=== PATIENT | male | born 1985 | race African-American/Black ===

== ENCOUNTER 2023-06-27 19:04 | Observation (INO) ==
--- NOTE | 2023-06-27 19:21 | Emergency Department Note ---
ED Provider Note History of Present Illness Chief Complaint: Abdominal Pain Stated Complaint: ABDOMINAL PAIN Time Seen by Provider: 06/27/23 19:09 Source: patient Mode of arrival: EMS Limitations: no limitations This patient is a 37-year-old male who presents to the emergency department via EMS from the correctional facility for evaluation of abdominal pain and guarding. Patient reports that his pain started when he woke up about 3 days ago. It has gradually worsened throughout the week and he went to medical today. They examined him and sent him to the ER. He states pain is primarily on the left side of the abdomen but does radiate throughout. He denies any fevers, vomiting or changes in bowel movements. He does report that he had diverticulitis in 2021 and this feels similar. He is not currently taking any medication for the abdominal pain. Home Medications Medication Instructions Recorded Confirmed Type celecoxib 200 mg capsule (Celebrex) 200 mg PO BID 06/27/23 06/27/23 History losartan 100 mg tablet 100 mg PO DAILY 06/27/23 06/27/23 History Allergies Allergy/AdvReac Type Severity Reaction Status Date / Time lactose AdvReac intolerance Verified 06/27/23 22:51 Past Med/Surg History Medical History No pertinent past medical history No pertinent family history Surgical History No pertinent past surgical history Social History Smoking Status: Never smoker Feels Safe at Home: Yes Physical Exam Vital Signs Vital Signs - 24 hr 06/27/23 18:53 06/27/23 19:06 06/27/23 19:10 Temperature 37.0 C Temperature Source Oral Pulse Rate 77 Pulse Rate from SpO2 Sensor Respiratory Rate 20 Respiratory Effort / Characteristics Non-Labored Spontaneous Respiratory Depth Normal Blood Pressure Blood Pressure [Right Arm] 130/92 Blood Pressure Mean Blood Pressure Mean [Right Arm] 104 Pulse Oximetry 95 98 Oxygen Delivery Method Room Air Room Air Sepsis Recent Fever Within 48 Hours No Sepsis New/Unexplained Change in Mental Status No Sepsis Action Taken by Nursing No Action Required 06/27/23 19:13 06/27/23 19:15 06/27/23 19:30 Temperature Temperature Source Pulse Rate 84 77 72 Pulse Rate from SpO2 Sensor Respiratory Rate 17 18 Respiratory Effort / Characteristics Respiratory Depth Blood Pressure Blood Pressure [Right Arm] Blood Pressure Mean Blood Pressure Mean [Right Arm] Pulse Oximetry Oxygen Delivery Method Sepsis Recent Fever Within 48 Hours Sepsis New/Unexplained Change in Mental Status Sepsis Action Taken by Nursing 06/27/23 19:49 06/27/23 20:00 06/27/23 20:30 Temperature Temperature Source Pulse Rate 77 80 Pulse Rate from SpO2 Sensor 78 Respiratory Rate 21 24 Respiratory Effort / Characteristics Respiratory Depth Blood Pressure Blood Pressure [Right Arm] Blood Pressure Mean Blood Pressure Mean [Right Arm] Pulse Oximetry 98 97 Oxygen Delivery Method Room Air Sepsis Recent Fever Within 48 Hours Sepsis New/Unexplained Change in Mental Status Sepsis Action Taken by Nursing 06/27/23 20:45 06/27/23 21:00 06/27/23 21:02 Temperature Temperature Source Pulse Rate 91 H 71 73 Pulse Rate from SpO2 Sensor 85 69 72 Respiratory Rate 20 17 19 Respiratory Effort / Characteristics Respiratory Depth Blood Pressure 145/119 H 159/107 H Blood Pressure [Right Arm] Blood Pressure Mean 127 124 Blood Pressure Mean [Right Arm] Pulse Oximetry 95 94 95 Oxygen Delivery Method Sepsis Recent Fever Within 48 Hours Sepsis New/Unexplained Change in Mental Status Sepsis Action Taken by Nursing 06/27/23 21:11 Temperature Temperature Source Pulse Rate Pulse Rate from SpO2 Sensor Respiratory Rate Respiratory Effort / Characteristics Non-Labored Spontaneous Respiratory Depth Normal Blood Pressure Blood Pressure [Right Arm] Blood Pressure Mean Blood Pressure Mean [Right Arm] Pulse Oximetry Oxygen Delivery Method Sepsis Recent Fever Within 48 Hours Sepsis New/Unexplained Change in Mental Status Sepsis Action Taken by Nursing VITALS: Vitals are noted on the nurse's note and reviewed by myself. GENERAL: This is a 37-year-old male, in no acute distress, well-developed well- nourished. MOUTH: Mucous membranes moist. NECK: Supple without nuchal rigidity. HEART: Regular rate and rhythm without murmurs gallops or rubs. LUNGS: Clear to auscultation bilaterally without wheezes, rales or rhonchi. ABDOMEN: Abdomen mildly distended. Tenderness throughout the abdomen, most pronounced in the left lower quadrant. Positive guarding. NEURO: Patient was alert and oriented. Course Administered Medications Sodium Chloride (Nss) 1,000 mls @ 999 mls/hr IV .Q1H1M ONE Stop: 06/27/23 23:17 Last Admin: 06/27/23 22:28 Dose: 999 mls/hr Documented By: CELESTE Discontinued Medications Hydromorphone HCl (Hydromorphone Inj 0.5 Mg/0.5 Ml Syr) 0.5 mg IV NOW STA Stop: 06/27/23 22:18 Last Admin: 06/27/23 22:28 Dose: 0.5 mg Documented By: CELESTE Piperacillin Sod/Tazobactam Sod (Zosyn) 4.5 gm in 100 mls @ 200 mls/hr IV NOW STA; Protocol Stop: 06/27/23 22:37 Last Infusion: 06/27/23 22:53 Dose: Infused Documented By: Admin: 06/27/23 22:11 Dose: 200 mls/hr Documented By: CELESTE Ioversol (Optiray 320 500ml) 88 ml IV ONCE ONE Stop: 06/27/23 20:32 Last Admin: 06/27/23 20:31 Dose: 88 ml Documented By: SHRUTI Ketorolac Tromethamine (Ketorolac Tromethamine 15 Mg/Ml Vial) 15 mg IV NOW STA Stop: 06/27/23 22:44 Last Admin: 06/27/23 23:00 Dose: 15 mg Documented By: CELESTE Morphine Sulfate (Morphine Sulfate 10 Mg/Ml Carp/Vial) 6 mg IV NOW STA Stop: 06/27/23 20:33 Last Admin: 06/27/23 20:38 Dose: 6 mg Documented By: CELESTE Ondansetron HCl (Ondansetron Inj 2 Mg/Ml 2 Ml Vial) 4 mg IV NOW STA Stop: 06/27/23 20:33 Last Admin: 06/27/23 20:39 Dose: 4 mg Documented By: CELESTE Ondansetron HCl (Ondansetron Inj 2 Mg/Ml 2 Ml Vial) 4 mg IV NOW STA Stop: 06/27/23 22:27 Last Admin: 06/27/23 22:28 Dose: 4 mg Documented By: CELESTE Medical Decision Making Differential Diagnosis Appendicitis, testicular torsion, infections, diverticulitis, UTI, obstruction, mesenteric ischemia, aortic pathology, inflammatory bowel disease, renal colic, PUD, pancreatitis, biliary pathology, hernia, volvulus, constipation, as well as other pathologies. Home Medications was personally reviewed by me Laboratory Data Attestation: I reviewed the patient's lab results. 06/27/23 19:18 06/27/23 19:18 Lab Results 06/27/23 Range/Units 19:18 WBC 8.31 (4.8-10.8) K/ul RBC 6.10 (4.70-6.10) M/uL Hgb 17.7 (14.0-18.0) g/dl Hct 52.4 H (42.0-52.0) % MCV 85.9 (80.0-100.0) fL MCH 29.0 (25.0-34.0) pg MCHC 33.8 (32.0-36.0) g/dL RDW Std Deviation 42.4 (36.4-46.3) fL RDW Coeff of Marcella 13.6 (11.5-14.5) % Plt Count 281 (130-400) K/uL MPV 9.5 (9.4-12.4) fL Immature Gran % (Auto) 0.4 % Neut % (Auto) 58.1 % Lymph % (Auto) 29.6 % [place] % (Auto) 11.1 % Eos % (Auto) 0.6 % Baso % (Auto) 0.2 % Neut # (Auto) 4.83 (1.40-6.50) K/uL Lymph # (Auto) 2.46 (1.20-3.40) K/uL [place] # (Auto) 0.92 H (0.11-0.59) K/uL Eos # (Auto) 0.05 (0.00-0.50) K/uL Baso # (Auto) 0.02 (0.00-0.20) K/uL Immature Gran # (Auto) 0.03 (0.01-0.20) K/uL Sodium 139 (136-145) mmol/L Potassium 3.5 (3.5-5.1) mmol/L Chloride 104 (98-107) mmol/L Carbon Dioxide 27 (21-32) mmol/L Anion Gap 8 (3-11) BUN 9 (6-23) mg/dl Creatinine 1.12 (0.6-1.4) mg/dl Est Cr Clr Drug Dosing 112.0 ml/min Est GFR ( Amer) 96.7 ml/min Est GFR (Non-Af Amer) 83.5 ml/min BUN/Creatinine Ratio 8.0 L (10-20) Glucose 103 H (70-99(Fasting)) mg/dl Lactate 0.8 (0.4-2.0) mmol/L Calcium 8.8 (8.6-10.3) mg/dl Total Bilirubin 0.6 (0.2-1.0) mg/dl AST 17 (13-39) U/L ALT 26 (7-52) U/L Alkaline Phosphatase 103 (34-104) U/L Total Protein 8.0 (6.0-8.3) gm/dl Albumin 4.5 (3.4-5.0) gm/dl Globulin 3.5 (2.5-4.0) gm/dl Albumin/Globulin Ratio 1.3 (0.9-2) Lipase 9 L (11-82) U/L Imaging Data Attestation: I personally reviewed and interpreted this imaging study as follows: Radiologist's Impression: Abdomen/Pelvis CT 06/27/23 19:16 CR Exam(s): CT ABDOMEN + PELVIS With Contrast IV Amt: 88 ml opti 320 EXAM: CT Abdomen and Pelvis With Intravenous Contrast CLINICAL HISTORY: Reason for exam: llq pain, guarding, hx diverticulitis. TECHNIQUE: Axial computed tomography images of the abdomen and pelvis with intravenous contrast. CTDI is 27.92 mGy and DLP is 1459.91 mGy-cm. Automated exposure control was utilized for the study. A dose lowering technique was utilized adhering to the principles of ALARA. CONTRAST: Patient received 88 ml opti 320 of IV contrast COMPARISON: CT abdomen pelvis 07/11/2021. FINDINGS: Lung bases: Unremarkable. No mass. No consolidation. ABDOMEN: Liver: Unremarkable. No mass. Gallbladder and bile ducts: Unremarkable. No calcified stones. No ductal dilation. Pancreas: Unremarkable. No mass. No ductal dilation. Spleen: Unremarkable. No splenomegaly. Adrenals: Unremarkable. No mass. Kidneys and ureters: Subcentimeter hypodensities in the kidneys are too small to characterize. No hydronephrosis. Stomach and bowel: There appears to be pneumatosis coli in the cecum and ascending colon. Fluid-filled small bowel and proximal colon. PELVIS: Appendix: No findings to suggest acute appendicitis. Bladder: Unremarkable. No mass. Reproductive: Unremarkable as visualized. ABDOMEN and PELVIS: Intraperitoneal space: No free air. No significant fluid collection. Bones/joints: Degenerative change in the sacroiliac joints, right greater than left. No acute fracture. No dislocation. Soft tissues: Unremarkable. Vasculature: Unremarkable. No abdominal aortic aneurysm. Lymph nodes: Unremarkable. No enlarged lymph nodes. IMPRESSION: There appears to be pneumatosis coli in the cecum and ascending colon. No definite etiology is identified on this examination. However, infection/inflammation may be a potential source of given fluid throughout the small bowel and proximal colon. No definite mesenteric artery or vein occlusion is seen. Clinical correlation is recommended. Communications: Call Doctor Tiff 06/27/23 21:10 Call Doctor Regarding Above results, called JONNIE Velasco on 06/27 21:10 (-05:00) Electronically signed by: Dangelo Novoa MD 06/27/23 21:10 PM MDM Narrative Continuous telemetry monitor: Order was placed for continuous telemetry monitor. Patient was placed on the telemetry monitor. Patient was noted to be in normal sinus rhythm at an initial rate of 70 bpm. The patient is a 37-year-old male with past medical history of hypertension, diverticulitis who presents today complaining of abdominal pain. Labs revealed no leukocytosis, anemia or concerning electrolyte abnormalities. Lactate was not elevated. CT scan performed and reviewed by stat read. I did discuss with the statrad radiologist, Dr. Novoa. CT showed pneumatosis coli with no definite etiology. Discussed with general surgery, Dr. Silva who recommended treating for presumed diverticulitis. Patient given a dose of Zosyn. Discussed with the [facility] hospitalist, Dr. Mo who will admit the patient for further care. Discharge Plan Visit Data Chief Complaint: Abdominal Pain Stated Complaint: ABDOMINAL PAIN ED Provider: Maci Kendall ED Midlevel Provider: Sondra Montenegro Forms Stand Alone Forms: My [facility] [id number] Prescriptions Prescriptions: No Action celecoxib [Celebrex] 200 mg Capsule 200 mg PO BID losartan 100 mg Tablet 100 mg PO DAILY Referrals Referrals: Savannah LUDWIG [Primary Care Provider] -
[2023-06-27 19:39] LABS: Basophils # (auto) 0.02 K/uL (0.00-0.20); Basophils % (auto) 0.2 %; Eosinophils # (auto) 0.05 K/uL (0.00-0.50); Eosinophils % (auto) 0.6 %; Hematocrit (blood only) 52.4 % (42.0-52.0); Hemoglobin 17.7 g/dl (14.0-18.0); Immature Granulocytes # (auto) 0.03 K/uL (0.01-0.20); Immature Granulocytes % (auto) 0.4 %; Lymphocytes # (auto) 2.46 K/uL (1.20-3.40); Lymphocytes % (auto) 29.6 %; Mean Corpuscular Hgb Conc 33.8 g/dL (32.0-36.0); Mean Corpuscular Volume 85.9 fL (80.0-100.0); Mean Platelet Volume 9.5 fL (9.4-12.4); Monocytes # (auto) 0.92 K/uL (0.11-0.59); Monocytes % (auto) 11.1 %; Neutrophils # (auto) 4.83 K/uL (1.40-6.50); Neutrophils % (auto) 58.1 %; Platelet Count 281 K/uL (130-400); RDW Coefficient of Variation 13.6 % (11.5-14.5); RDW Standard Deviation 42.4 fL (36.4-46.3); White Blood Count 8.31 K/ul (4.8-10.8)
[2023-06-27 19:55] LABS: Albumin Globulin Ratio 1.3 (0.9-2); Albumin Level 4.5 gm/dl (3.4-5.0); Bilirubin,Total 0.6 mg/dl (0.2-1.0); Calcium 8.8 mg/dl (8.6-10.3); Est GFR (African American) 96.7 ml/min; Est GFR (Non-African American) 83.5 ml/min; Globulin 3.5 gm/dl (2.5-4.0); Potassium 3.5 mmol/L (3.5-5.1)
[2023-06-27] MEDS: OPTIRAY 320 500ml IV ONE (20:31)
[2023-06-27] MEDS: MoRPHine SULFATE 10 MG/ML CARP/VIAL IV STA (20:38)
[2023-06-27] MEDS: ONDANSETRON INJ 2 MG/ML 2 ML VIAL IV STA ×2 (20:39→22:28)
--- NOTE | 2023-06-27 21:11 | CT Scan Report ---
Exam(s): CT ABDOMEN + PELVIS With Contrast IV Amt: 88 ml opti 320 EXAM: CT Abdomen and Pelvis With Intravenous Contrast CLINICAL HISTORY: Reason for exam: llq pain, guarding, hx diverticulitis. TECHNIQUE: Axial computed tomography images of the abdomen and pelvis with intravenous contrast. CTDI is 27.92 mGy and DLP is 1459.91 mGy-cm. Automated exposure control was utilized for the study. A dose lowering technique was utilized adhering to the principles of ALARA. CONTRAST: Patient received 88 ml opti 320 of IV contrast COMPARISON: CT abdomen pelvis 07/11/2021. FINDINGS: Lung bases: Unremarkable. No mass. No consolidation. ABDOMEN: Liver: Unremarkable. No mass. Gallbladder and bile ducts: Unremarkable. No calcified stones. No ductal dilation. Pancreas: Unremarkable. No mass. No ductal dilation. Spleen: Unremarkable. No splenomegaly. Adrenals: Unremarkable. No mass. Kidneys and ureters: Subcentimeter hypodensities in the kidneys are too small to characterize. No hydronephrosis. Stomach and bowel: There appears to be pneumatosis coli in the cecum and ascending colon. Fluid-filled small bowel and proximal colon. PELVIS: Appendix: No findings to suggest acute appendicitis. Bladder: Unremarkable. No mass. Reproductive: Unremarkable as visualized. ABDOMEN and PELVIS: Intraperitoneal space: No free air. No significant fluid collection. Bones/joints: Degenerative change in the sacroiliac joints, right greater than left. No acute fracture. No dislocation. Soft tissues: Unremarkable. Vasculature: Unremarkable. No abdominal aortic aneurysm. Lymph nodes: Unremarkable. No enlarged lymph nodes. IMPRESSION: There appears to be pneumatosis coli in the cecum and ascending colon. No definite etiology is identified on this examination. However, infection/inflammation may be a potential source of given fluid throughout the small bowel and proximal colon. No definite mesenteric artery or vein occlusion is seen. Clinical correlation is recommended. Communications: Call Doctor Tiff 06/27/23 21:10 Call Doctor Regarding Above results, called JONNIE Velasco on 06/27 21:10 (-05:00) Electronically signed by: Dangelo Novoa MD 06/27/23 21:10 PM
[2023-06-27] MEDS ORDERED: PIPERACILLIN/TAZOBACTAM 4.5 GM in DEXTROSE 5% MINI-B 100 ML IV ONE (21:45)
[2023-06-27] MEDS: PIPERACILLIN/TAZOBACTAM 4.5 GM/100 ML BAG IV STA (22:11)
[2023-06-27] MEDS: SODIUM CHLORIDE 0.9% 1,000 ML IV ONE (22:28)
[2023-06-27] MEDS: HYDROmorphone INJ 0.5 MG/0.5 ML SYR IV STA (22:28)
[2023-06-27] MEDS: KETOROLAC TROMETHAMINE 15 MG/ML VIAL IV STA (23:00)
--- NOTE | 2023-06-27 23:48 | History & Physical Report ---
Date of Service June 27, 2023 Assessment & Plan (1) Abdominal pain: Plan: Pneumatosis coli on imaging Past history diverticulitis Presenting as LGIB Patient currently hemodynamically stable. hypertension, slightly elevated secondary discomfort F General surgery consult Re: Abnormal CT/pneumatosis coli on imaging ER provider already in touch with Dr. Silva who recommends antibiotic Rx with Zosyn and treating patient similar to diverticulitis management. GI consult re: LGIB, past history diverticulitis DVT prophylaxis. SCDs RE LGIB Full code Text document was generated using OLSET voice recognition software. It may contain grammatical or spelling errors. Kindly contact undersigned for clarification of any documentation item in question. History of Present Illness Chief Complaint: Abdominal pain Primary Care Provider: OZIEL Nuñez History obtained from patient and records. Medical history significant for hypertension, migraine, past episodes of diverticulitis, osteoarthritis. Last [facility] ER visit June 2021 for mild diverticulitis. Patient symptoms improved with home Rx of Augmentin at facility. Few days ago, patient noted achy lower abdominal pain reminiscent of diverticulitis pain from 2 years ago. Worsening pain noted today much worse than 2 years ago. Some nausea, no emesis. Constipated. No unusual weight loss. No fever, no chills, no chest pain, no SOB. Transient achy headache symptoms associated with seeing bright spots. Bloody diarrhea noted at the ER. Medical History as above Surgical History : None Family History : Heart disease, DM, stroke Personal/Social history : Non-smoker, no EtOH intake, [facility] inmate Allergies Allergy/AdvReac Type Severity Reaction Status Date / Time lactose AdvReac intolerance Verified 06/27/23 22:51 Home Medications Medication Instructions Recorded Confirmed Type celecoxib 200 mg capsule (Celebrex) 200 mg PO BID 06/27/23 06/27/23 History losartan 100 mg tablet 100 mg PO DAILY 06/27/23 06/27/23 History Past Med/Surg History Medical History No pertinent past medical history No pertinent family history Surgical History No pertinent past surgical history Social History Smoking Status: Never smoker Second Hand Exposure: No; Do You Dip or Chew Tobacco: No; Tobacco Cessation Education Requested by Patient: No Hx Alcohol Use: No Hx Substance Use: No Preferred Language: Moroccan Communication Ability: Effective Hand Leather Trimmer Required: No Beliefs That Will Affect Care: Jewish Jewish Beliefs: Jew. Current Living Situation: Other Current Living Situation Comment: [facility]. Other Information That Helps Us Care for You: No Feels Safe at Home: Yes Safety Concerns: Feels Safe At This Time Assistive Devices: None Review of Systems Review of Systems: As per HPI, all other systems reviewed and negative Physical Exam Physical Exam: GENERAL: uncomfortable, obese, anxious, no respiratory distress SKIN: Normal color, warm HEENT: [place] palpebral conjunctivae, no ptosis, dry buccal mucosa NECK : Supple, no tenderness CHEST : CTA, no tenderness HEART : RRR, no obvious murmurs ABDOMEN: Abdominal distention, left-sided abdominal tenderness EXTREMITIES : No LE swelling/tenderness, no other conspicuous deformities noted NEUROLOGIC : Coherent, no facial asymmetry, no other gross focality Results & Data Results & Data Vital Signs (Past 12 Hours) Vital Signs Temp Pulse Resp BP BP Pulse Ox O2 Del Method 06/27/23 21:02 73 19 159/107 H 95 06/27/23 21:00 71 17 94 06/27/23 20:45 91 H 20 145/119 H 95 06/27/23 20:30 80 24 97 06/27/23 20:00 77 21 06/27/23 19:49 98 Room Air 06/27/23 19:30 72 18 06/27/23 19:15 77 06/27/23 19:13 84 17 06/27/23 19:10 98 Room Air 06/27/23 19:06 130/92 06/27/23 18:53 37.0 C 77 20 95 Room Air Laboratory Results Laboratory Results WBC 8.31 K/ul (4.8-10.8) 06/27/23 19:18 RBC 6.10 M/uL (4.70-6.10) 06/27/23 19:18 Hgb 17.7 g/dl (14.0-18.0) 06/27/23 19:18 Hct 52.4 % (42.0-52.0) H 06/27/23 19:18 MCV 85.9 fL (80.0-100.0) 06/27/23 19:18 MCH 29.0 pg (25.0-34.0) 06/27/23 19:18 MCHC 33.8 g/dL (32.0-36.0) 06/27/23 19:18 RDW Std Deviation 42.4 fL (36.4-46.3) 06/27/23 19:18 RDW Coeff of Marcella 13.6 % (11.5-14.5) 06/27/23 19:18 Plt Count 281 K/uL (130-400) 06/27/23 19:18 MPV 9.5 fL (9.4-12.4) 06/27/23 19:18 Immature Gran % (Auto) 0.4 % 06/27/23 19:18 Neut % (Auto) 58.1 % 06/27/23 19:18 Lymph % (Auto) 29.6 % 06/27/23 19:18 [place] % (Auto) 11.1 % 06/27/23 19:18 Eos % (Auto) 0.6 % 06/27/23 19:18 Baso % (Auto) 0.2 % 06/27/23 19:18 Neut # (Auto) 4.83 K/uL (1.40-6.50) 06/27/23 19:18 Lymph # (Auto) 2.46 K/uL (1.20-3.40) 06/27/23 19:18 [place] # (Auto) 0.92 K/uL (0.11-0.59) H 06/27/23 19:18 Eos # (Auto) 0.05 K/uL (0.00-0.50) 06/27/23 19:18 Baso # (Auto) 0.02 K/uL (0.00-0.20) 06/27/23 19:18 Immature Gran # (Auto) 0.03 K/uL (0.01-0.20) 06/27/23 19:18 Sodium 139 mmol/L (136-145) 06/27/23 19:18 Potassium 3.5 mmol/L (3.5-5.1) 06/27/23 19:18 Chloride 104 mmol/L (98-107) 06/27/23 19:18 Carbon Dioxide 27 mmol/L (21-32) 06/27/23 19:18 Anion Gap 8 (3-11) 06/27/23 19:18 BUN 9 mg/dl (6-23) 06/27/23 19:18 Creatinine 1.12 mg/dl (0.6-1.4) 06/27/23 19:18 Est Cr Clr Drug Dosing 112.0 ml/min 06/27/23 19:18 Est GFR ( Amer) 96.7 ml/min 06/27/23 19:18 Est GFR (Non-Af Amer) 83.5 ml/min 06/27/23 19:18 BUN/Creatinine Ratio 8.0 (10-20) L 06/27/23 19:18 Glucose 103 mg/dl (70-99(Fasting)) H 06/27/23 19:18 Lactate 0.8 mmol/L (0.4-2.0) 06/27/23 19:18 Calcium 8.8 mg/dl (8.6-10.3) 06/27/23 19:18 Total Bilirubin 0.6 mg/dl (0.2-1.0) 06/27/23 19:18 AST 17 U/L (13-39) 06/27/23 19:18 ALT 26 U/L (7-52) 06/27/23 19:18 Alkaline Phosphatase 103 U/L (34-104) 06/27/23 19:18 Total Protein 8.0 gm/dl (6.0-8.3) 06/27/23 19:18 Albumin 4.5 gm/dl (3.4-5.0) 06/27/23 19:18 Globulin 3.5 gm/dl (2.5-4.0) 06/27/23 19:18 Albumin/Globulin Ratio 1.3 (0.9-2) 06/27/23 19:18 Lipase 9 U/L (11-82) L 06/27/23 19:18 Impressions Abdomen/Pelvis CT 06/27/23 19:16 CR Exam(s): CT ABDOMEN + PELVIS With Contrast IV Amt: 88 ml opti 320 EXAM: CT Abdomen and Pelvis With Intravenous Contrast CLINICAL HISTORY: Reason for exam: llq pain, guarding, hx diverticulitis. TECHNIQUE: Axial computed tomography images of the abdomen and pelvis with intravenous contrast. CTDI is 27.92 mGy and DLP is 1459.91 mGy-cm. Automated exposure control was utilized for the study. A dose lowering technique was utilized adhering to the principles of ALARA. CONTRAST: Patient received 88 ml opti 320 of IV contrast COMPARISON: CT abdomen pelvis 07/11/2021. FINDINGS: Lung bases: Unremarkable. No mass. No consolidation. ABDOMEN: Liver: Unremarkable. No mass. Gallbladder and bile ducts: Unremarkable. No calcified stones. No ductal dilation. Pancreas: Unremarkable. No mass. No ductal dilation. Spleen: Unremarkable. No splenomegaly. Adrenals: Unremarkable. No mass. Kidneys and ureters: Subcentimeter hypodensities in the kidneys are too small to characterize. No hydronephrosis. Stomach and bowel: There appears to be pneumatosis coli in the cecum and ascending colon. Fluid-filled small bowel and proximal colon. PELVIS: Appendix: No findings to suggest acute appendicitis. Bladder: Unremarkable. No mass. Reproductive: Unremarkable as visualized. ABDOMEN and PELVIS: Intraperitoneal space: No free air. No significant fluid collection. Bones/joints: Degenerative change in the sacroiliac joints, right greater than left. No acute fracture. No dislocation. Soft tissues: Unremarkable. Vasculature: Unremarkable. No abdominal aortic aneurysm. Lymph nodes: Unremarkable. No enlarged lymph nodes. IMPRESSION: There appears to be pneumatosis coli in the cecum and ascending colon. No definite etiology is identified on this examination. However, infection/inflammation may be a potential source of given fluid throughout the small bowel and proximal colon. No definite mesenteric artery or vein occlusion is seen. Clinical correlation is recommended. Communications: Call Doctor Tiff 06/27/23 21:10 Call Doctor Regarding Above results, called JONNIE Velasco on 06/27 21:10 (-05:00) Electronically signed by: Dangelo Novoa MD 06/27/23 21:10 PM Diagnostic Findings EKG as per my interpretation : Rate 80, NSR, normal axis, T wave abnormalities inferior leads,
[2023-06-28] MEDS ORDERED: LORazepam 0.5 MG TAB PO PRN (01:05)
[2023-06-28] MEDS ORDERED: ACETAMINOPHEN 325 MG TAB PO PRN (01:17)
[2023-06-28 01:48] LABS: Appearance Urine Clear (Clear); Bacteria Urine Automated Negative (Negative); Bilirubin Urine Negative (Negative); Blood Urine Negative (Negative); Color Urine Yellow; Glucose Urine UA Negative (Negative); Ketones Urine Negative (Negative); Leukocyte Esterase Urine Negative (Negative); Nitrite Urine Negative (Negative); Protein Urine Trace (Negative); RBC Urine Automated 0-4 /hpf (0-4); Specific Gravity Urine > 1.045 (1.000-1.030); Urobilinogen Urine Negative (Negative); pH Urine 5.5 (4.5-7.5)
[2023-06-28 01:54] LABS: Hematocrit (blood only) 49.5 % (42.0-52.0); Hemoglobin 16.6 g/dl (14.0-18.0)
[2023-06-28] MEDS: oxyCODONE HCL IR 5 MG TAB (IMMEDIATE RELEASE) PO PRN (02:02)
[2023-06-28] MEDS: NSS + 20MEQ KCL 20 MEQ/1,000 ML BAG IV STA (02:03)
--- NOTE | 2023-06-28 03:06 | CT Scan Report ---
Exam(s): CT HEAD Without Contrast EXAM: CT Head Without Intravenous Contrast CLINICAL HISTORY: Reason for exam: transient goff, visual spots. TECHNIQUE: Axial computed tomography images of the head/brain without intravenous contrast. CTDI is 37.49 mGy and DLP is 547.75 mGy-cm. Automated exposure control was utilized for the study. A dose lowering technique was utilized adhering to the principles of ALARA. COMPARISON: No relevant prior studies available. FINDINGS: Brain: Unremarkable. No hemorrhage. No significant white matter disease. No edema. Ventricles: Unremarkable. No ventriculomegaly. Bones/joints: Unremarkable. No acute fracture. Soft tissues: Unremarkable. Sinuses: Unremarkable as visualized. No acute sinusitis. Mastoid air cells: Unremarkable as visualized. No mastoid effusion. Orbits: Prior right inferior orbital rim repair. IMPRESSION: No acute findings in the head/brain. Electronically signed by: Francisco Hurd M.D. 06/28/23 03:05 AM
[2023-06-28] MEDS: PIPERACILLIN/TAZOBACTAM 4.5 GM in DEXTROSE 5% MINI-B 100 ML IV SCH (04:00)
[2023-06-28] MEDS: PROMETHAZINE HCL 12.5 MG in SODIUM CHLORIDE 0.9% 50 ML IV PRN (04:05)
--- NOTE | 2023-06-28 07:07 | Electrocardiogram Report ---
Test Reason : Blood Pressure : / mmHG Vent. Rate : 080 BPM Atrial Rate : 080 BPM P-R Int : 178 ms QRS Dur : 086 ms QT Int : 368 ms P-R-T Axes : 034 051 018 degrees QTc Int : 424 ms Normal sinus rhythm Normal ECG No previous ECGs available Confirmed by Tony Posada ([id number]) on 06/28/2023 7:07:13 AM Referred By: REFERRED SELF Confirmed By:Oswaldo Posada
[2023-06-28] MEDS: LOSARTAN POTASSIUM 50 MG TAB PO SCH (08:23)
--- NOTE | 2023-06-28 09:40 | Gastrointestinal Consultation ---
Date of Consultation June 28, 2023 Assessment & Plan (1) Abdominal pain: He has abdominal pain and "pneumatosis coli" in right colon. Suspect he has an acute infectious enteritis. Would treat with antibiotics and observe. Do not plan testing History of Present Illness Reason for Consultation: abdominal pain Attending Physician: Brian Sepulveda MD History of Present Illness 37 year old inmate who has had abdominal pain in his left lower abdomen since Friday. He says he didn't tell anybody about it. He got worse yesterday so he came to hospital. Only had two episodes of diarrhea with it and only saw blood on the tissue on one occasion. He denies fever or chills. He says he has not had anything like this before. CT scan shows right sided pneumatosis coli with fluid in small and large bowel suggestive of infection. Allergies Allergy/AdvReac Type Severity Reaction Status Date / Time lactose AdvReac intolerance Verified 06/27/23 22:51 Home Medications Medication Instructions Recorded Confirmed Type celecoxib 200 mg capsule (Celebrex) 200 mg PO BID 06/27/23 06/27/23 History losartan 100 mg tablet 100 mg PO DAILY 06/27/23 06/27/23 History Patient History Medical History No pertinent past medical history No pertinent family history Surgical History No pertinent past surgical history Social History Smoking Status: Never smoker Second Hand Exposure: No; Do You Dip or Chew Tobacco: No; Tobacco Cessation Education Requested by Patient: No Hx Alcohol Use: No Hx Substance Use: No Preferred Language: Slovak Communication Ability: Effective Odd Ticket Clerk Required: No Beliefs That Will Affect Care: Advent Advent Beliefs: Christian. Current Living Situation: Other Current Living Situation Comment: [facility]. Other Information That Helps Us Care for You: No Feels Safe at Home: Yes Safety Concerns: Feels Safe At This Time Assistive Devices: None Review of Systems Review of Systems: All systems reviewed & are unremarkable except as noted in HPI & below Physical Exam Constitutional: WD/WN, vitals as above Neck: trachea midline, no thyromegaly Respiratory: normal respiratory effort, lungs clear to auscultation Cardiovascular: RRR, no murmur, no edema Gastrointestinal (Abdomen): Inspection/Auscultation: abdomen normal to inspection Percussion/Palpation: + abdomen tender and abdomen soft; no hepatosplenomegaly Results & Data Vital Signs (Past 12 Hours) Vital Signs Temp Pulse Pulse Resp BP BP Pulse Ox 06/28/23 08:21 62 137/78 06/28/23 07:12 36.6 C 69 16 101/62 95 06/28/23 02:35 36.7 C 62 18 141/93 H 96 06/28/23 02:30 06/28/23 02:30 06/28/23 02:30 36.7 C 62 18 141/93 H 96 06/28/23 01:57 06/28/23 01:00 66 18 06/28/23 00:30 71 21 06/28/23 00:01 61 25 H 125/91 97 06/28/23 00:00 62 21 96 06/27/23 23:31 69 14 95 06/27/23 23:30 67 22 130/66 96 06/27/23 23:17 63 06/27/23 23:03 70 24 126/80 95 06/27/23 23:00 72 16 95 06/27/23 22:30 76 26 H 95 06/27/23 22:04 74 21 94 O2 Del Method 06/28/23 08:21 06/28/23 07:12 Room Air 06/28/23 02:35 Room Air 06/28/23 02:30 Room Air 06/28/23 02:30 Room Air 06/28/23 02:30 Room Air 06/28/23 01:57 Room Air 06/28/23 01:00 06/28/23 00:30 06/28/23 00:01 06/28/23 00:00 06/27/23 23:31 06/27/23 23:30 06/27/23 23:17 06/27/23 23:03 06/27/23 23:00 06/27/23 22:30 06/27/23 22:04 Laboratory Results 06/28/23 06/28/23 06/28/23 Range/Units 03:44 01:19 01:11 WBC (4.8-10.8) K/ul RBC (4.70-6.10) M/uL Hgb 16.6 (14.0-18.0) g/dl Hct 49.5 (42.0-52.0) % MCV (80.0-100.0) fL MCH (25.0-34.0) pg MCHC (32.0-36.0) g/dL RDW Std Deviation (36.4-46.3) fL RDW Coeff of Marcella (11.5-14.5) % Plt Count (130-400) K/uL MPV (9.4-12.4) fL Immature Gran % (Auto) % Neut % (Auto) % Lymph % (Auto) % [place] % (Auto) % Eos % (Auto) % Baso % (Auto) % Neut # (Auto) (1.40-6.50) K/uL Lymph # (Auto) (1.20-3.40) K/uL [place] # (Auto) (0.11-0.59) K/uL Eos # (Auto) (0.00-0.50) K/uL Baso # (Auto) (0.00-0.20) K/uL Immature Gran # (Auto) (0.01-0.20) K/uL Sodium (136-145) mmol/L Potassium (3.5-5.1) mmol/L Chloride (98-107) mmol/L Carbon Dioxide (21-32) mmol/L Anion Gap (3-11) BUN (6-23) mg/dl Creatinine (0.6-1.4) mg/dl Est Cr Clr Drug Dosing ml/min Est GFR ( Amer) ml/min Est GFR (Non-Af Amer) ml/min BUN/Creatinine Ratio (10-20) Glucose (70-99(Fasting)) mg/dl Lactate (0.4-2.0) mmol/L Calcium (8.6-10.3) mg/dl Total Bilirubin (0.2-1.0) mg/dl AST (13-39) U/L ALT (7-52) U/L Alkaline Phosphatase (34-104) U/L Total Protein (6.0-8.3) gm/dl Albumin (3.4-5.0) gm/dl Globulin (2.5-4.0) gm/dl Albumin/Globulin Ratio (0.9-2) Lipase (11-82) U/L Urine Color Urine Appearance (Clear) Urine pH (4.5-7.5) Ur Specific [place] (1.000-1.030) Urine Protein (Negative) Urine Glucose (UA) (Negative) Urine Ketones (Negative) Urine Blood (Negative) Urine Nitrite (Negative) Urine Bilirubin (Negative) Urine Urobilinogen (Negative) Ur Leukocyte Esterase (Negative) Urine WBC (Auto) (0-5) /hpf Urine RBC (Auto) (0-4) /hpf U Hyaline Cast (Auto) (0-5) /lpf U Epithel Cells (Auto) (0-5) /lpf Urine Bacteria (Auto) (Negative) Nasal Screen MRSA (PCR) Negative (Negative) SARS-CoV-2, RNA, NAAT NEGATIVE (NEGATIVE) Blood Type O Positive Antibody Screen NEGATIVE 06/28/23 06/27/23 Range/Units 00:00 19:18 WBC 8.31 (4.8-10.8) K/ul RBC 6.10 (4.70-6.10) M/uL Hgb 17.7 (14.0-18.0) g/dl Hct 52.4 H (42.0-52.0) % MCV 85.9 (80.0-100.0) fL MCH 29.0 (25.0-34.0) pg MCHC 33.8 (32.0-36.0) g/dL RDW Std Deviation 42.4 (36.4-46.3) fL RDW Coeff of Marcella 13.6 (11.5-14.5) % Plt Count 281 (130-400) K/uL MPV 9.5 (9.4-12.4) fL Immature Gran % (Auto) 0.4 % Neut % (Auto) 58.1 % Lymph % (Auto) 29.6 % [place] % (Auto) 11.1 % Eos % (Auto) 0.6 % Baso % (Auto) 0.2 % Neut # (Auto) 4.83 (1.40-6.50) K/uL Lymph # (Auto) 2.46 (1.20-3.40) K/uL [place] # (Auto) 0.92 H (0.11-0.59) K/uL Eos # (Auto) 0.05 (0.00-0.50) K/uL Baso # (Auto) 0.02 (0.00-0.20) K/uL Immature Gran # (Auto) 0.03 (0.01-0.20) K/uL Sodium 139 (136-145) mmol/L Potassium 3.5 (3.5-5.1) mmol/L Chloride 104 (98-107) mmol/L Carbon Dioxide 27 (21-32) mmol/L Anion Gap 8 (3-11) BUN 9 (6-23) mg/dl Creatinine 1.12 (0.6-1.4) mg/dl Est Cr Clr Drug Dosing 112.0 ml/min Est GFR ( Amer) 96.7 ml/min Est GFR (Non-Af Amer) 83.5 ml/min BUN/Creatinine Ratio 8.0 L (10-20) Glucose 103 H (70-99(Fasting)) mg/dl Lactate 0.8 (0.4-2.0) mmol/L Calcium 8.8 (8.6-10.3) mg/dl Total Bilirubin 0.6 (0.2-1.0) mg/dl AST 17 (13-39) U/L ALT 26 (7-52) U/L Alkaline Phosphatase 103 (34-104) U/L Total Protein 8.0 (6.0-8.3) gm/dl Albumin 4.5 (3.4-5.0) gm/dl Globulin 3.5 (2.5-4.0) gm/dl Albumin/Globulin Ratio 1.3 (0.9-2) Lipase 9 L (11-82) U/L Urine Color Yellow Urine Appearance Clear (Clear) Urine pH 5.5 (4.5-7.5) Ur Specific [place] > 1.045 H (1.000-1.030) Urine Protein Trace H (Negative) Urine Glucose (UA) Negative (Negative) Urine Ketones Negative (Negative) Urine Blood Negative (Negative) Urine Nitrite Negative (Negative) Urine Bilirubin Negative (Negative) Urine Urobilinogen Negative (Negative) Ur Leukocyte Esterase Negative (Negative) Urine WBC (Auto) 1-5 (0-5) /hpf Urine RBC (Auto) 0-4 (0-4) /hpf U Hyaline Cast (Auto) 1-5 (0-5) /lpf U Epithel Cells (Auto) 5-10 H (0-5) /lpf Urine Bacteria (Auto) Negative (Negative) Nasal Screen MRSA (PCR) (Negative) SARS-CoV-2, RNA, NAAT (NEGATIVE) Blood Type Antibody Screen Diagnostic Findings Abdomen/Pelvis CT 06/27/23 19:16 CR Exam(s): CT ABDOMEN + PELVIS With Contrast IV Amt: 88 ml opti 320 EXAM: CT Abdomen and Pelvis With Intravenous Contrast CLINICAL HISTORY: Reason for exam: llq pain, guarding, hx diverticulitis. TECHNIQUE: Axial computed tomography images of the abdomen and pelvis with intravenous contrast. CTDI is 27.92 mGy and DLP is 1459.91 mGy-cm. Automated exposure control was utilized for the study. A dose lowering technique was utilized adhering to the principles of ALARA. CONTRAST: Patient received 88 ml opti 320 of IV contrast COMPARISON: CT abdomen pelvis 07/11/2021. FINDINGS: Lung bases: Unremarkable. No mass. No consolidation. ABDOMEN: Liver: Unremarkable. No mass. Gallbladder and bile ducts: Unremarkable. No calcified stones. No ductal dilation. Pancreas: Unremarkable. No mass. No ductal dilation. Spleen: Unremarkable. No splenomegaly. Adrenals: Unremarkable. No mass. Kidneys and ureters: Subcentimeter hypodensities in the kidneys are too small to characterize. No hydronephrosis. Stomach and bowel: There appears to be pneumatosis coli in the cecum and ascending colon. Fluid-filled small bowel and proximal colon. PELVIS: Appendix: No findings to suggest acute appendicitis. Bladder: Unremarkable. No mass. Reproductive: Unremarkable as visualized. ABDOMEN and PELVIS: Intraperitoneal space: No free air. No significant fluid collection. Bones/joints: Degenerative change in the sacroiliac joints, right greater than left. No acute fracture. No dislocation. Soft tissues: Unremarkable. Vasculature: Unremarkable. No abdominal aortic aneurysm. Lymph nodes: Unremarkable. No enlarged lymph nodes. IMPRESSION: There appears to be pneumatosis coli in the cecum and ascending colon. No definite etiology is identified on this examination. However, infection/inflammation may be a potential source of given fluid throughout the small bowel and proximal colon. No definite mesenteric artery or vein occlusion is seen. Clinical correlation is recommended. Communications: Call Doctor Tiff 06/27/23 21:10 Call Doctor Regarding Above results, called JONNIE Velasco on 06/27 21:10 (-05:00) Electronically signed by: Dangelo Novoa MD 06/27/23 21:[address] 06/28/23 00:00 Exam(s): CT HEAD Without Contrast EXAM: CT Head Without Intravenous Contrast CLINICAL HISTORY: Reason for exam: transient goff, visual spots. TECHNIQUE: Axial computed tomography images of the head/brain without intravenous contrast. CTDI is 37.49 mGy and DLP is 547.75 mGy-cm. Automated exposure control was utilized for the study. A dose lowering technique was utilized adhering to the principles of ALARA. COMPARISON: No relevant prior studies available. FINDINGS: Brain: Unremarkable. No hemorrhage. No significant white matter disease. No edema. Ventricles: Unremarkable. No ventriculomegaly. Bones/joints: Unremarkable. No acute fracture. Soft tissues: Unremarkable. Sinuses: Unremarkable as visualized. No acute sinusitis. Mastoid air cells: Unremarkable as visualized. No mastoid effusion. Orbits: Prior right inferior orbital rim repair. IMPRESSION: No acute findings in the head/brain. Electronically signed by: Francisco Hurd M.D. 06/28/23 03:05 AM
[2023-06-28] MEDS: KETOROLAC TROMETHAMINE 15 MG/ML VIAL IV PRN (11:09)
--- NOTE | 2023-06-28 13:18 | Surgery Consultation ---
Date of Consultation June 28, 2023 Assessment & Plan (1) Pneumatosis coli: This is a 37yM prisoner with a PMH of diverticulitis who presents to the [facility] ED on 06/27/23 with complaints of abdominal pain over the last couple of days that has been worsening. This was associated with a bloody BM and abdominal bloating. He presented to the ER due to the severity of his pain. A CT a/p was performed that revealed pneumatosis coli in the cecum and ascending colon, without definite etiology, however infection/inflammation may be a potential source of given fluid throughout the small bowel and proximal colon. No definite mesenteric artery or vein occlusion is seen. The patient states the pain was throughout the abdomen but worse on the L side. Said it felt similar to his episode of diverticulitis he had back in 2021. No fevers, nausea/vomiting. Labs yesterday show WBC 8, Hbg 16 (17), lactate 0.8, Cr 1.1. Vital signs are stable. On exam abdomen is softly distended with generalized discomfort, worse in the LLQ. Patient is feeling a little better at this point than admission. Would treat conservatively at this time and keep patient NPO with IVF, agree with IV zosyn. GI has been consulted as well for their recommendations. as above. feeling better but still with some supra pubic pain and mild LEFT lower pain ( although pneumatosis is in right colon) no peritonitis no urgent indication for surgical intervention. keep npo today. IV antibiotics. will continue to monitor closely. History of Present Illness Attending Physician: Brian Sepulveda MD History of Present Illness This is a 37yM prisoner with a PMH of diverticulitis who presents to the [facility] ED on 06/27/23 with complaints of abdominal pain over the last couple of days that has worsened. This was associated with some bloody BMs and abdominal bloat. He presented to the ER due to the severity of his pain. A CT a/p was performed that revealed pneumatosis coli in the cecum and ascending colon, without definite etiology, however infection/inflammation may be a potential source of given fluid throughout the small bowel and proximal colon. No definite mesenteric artery or vein occlusion is seen. The patient states the pain was throughout the abdomen but worse on the L side. Said it felt similar to his episode of diverticulitis he had back in 2021. No fevers, nausea/vomiting. history of a ventral hernia repair. Allergies Allergy/AdvReac Type Severity Reaction Status Date / Time lactose AdvReac intolerance Verified 06/27/23 22:51 Home Medications Medication Instructions Recorded Confirmed Type celecoxib 200 mg capsule (Celebrex) 200 mg PO BID 06/27/23 06/27/23 History losartan 100 mg tablet 100 mg PO DAILY 06/27/23 06/27/23 History Patient History Medical History No pertinent past medical history No pertinent family history Surgical History No pertinent past surgical history Social History Smoking Status: Never smoker Second Hand Exposure: No; Do You Dip or Chew Tobacco: No; Tobacco Cessation Education Requested by Patient: No Hx Alcohol Use: No Hx Substance Use: No Preferred Language: [place] Communication Ability: Effective Security Researcher Required: No Beliefs That Will Affect Care: Hindu Hindu Beliefs: Cheondoism. Current Living Situation: Other Current Living Situation Comment: [facility]. Other Information That Helps Us Care for You: No Feels Safe at Home: Yes Safety Concerns: Feels Safe At This Time Assistive Devices: None Review of Systems Constitutional: no fever and no chills Respiratory: no dyspnea Gastrointestinal: + abdominal pain and + bloating; no naus ea and no vomiting Physical Exam Physical Exam: awake/alert, no distress Gastrointestinal (Abdomen): Inspection/Auscultation: + abdomen distended Percussion/Palpation: + abdomen tender (generalized discomfort but worse in the LLQ) and abdomen soft Results & Data Vital Signs (Past 12 Hours) Vital Signs Temp Pulse Resp BP Pulse Ox O2 Del Method 06/28/23 08:21 62 137/78 06/28/23 07:12 97.9 F 69 16 101/62 95 Room Air 06/28/23 02:35 98.1 F 62 18 141/93 H 96 Room Air 06/28/23 02:30 Room Air 06/28/23 02:30 Room Air 06/28/23 02:30 98.1 F 62 18 141/93 H 96 Room Air 06/28/23 01:57 Room Air Diagnostic Findings ADDENDUM ADDENDUM: 06/27/23 21:10 Call Doctor Regarding Pneumatosis, called JONNIE Velasco on Electronically signed by: Dangelo Novoa MD Electronically signed by: Dangelo Novoa MD 06/27/23 21:10 PM ADDENDUM END ADDENDUM ADDENDUM: 06/27/23 21:10 Call Doctor Regarding Above results, called JONNIE Velasco on Electronically signed by: Dangelo Novoa MD Electronically signed by: Dangelo Novoa MD 06/27/23 21:10 PM ADDENDUM END Exam(s): CT ABDOMEN + PELVIS With Contrast IV Amt: 88 ml opti 320 EXAM: CT Abdomen and Pelvis With Intravenous Contrast CLINICAL HISTORY: Reason for exam: llq pain, guarding, hx diverticulitis. TECHNIQUE: Axial computed tomography images of the abdomen and pelvis with intravenous contrast. CTDI is 27.92 mGy and DLP is 1459.91 mGy-cm. Automated exposure control was utilized for the study. A dose lowering technique was utilized adhering to the principles of ALARA. CONTRAST: Patient received 88 ml opti 320 of IV contrast COMPARISON: CT abdomen pelvis 07/11/2021. FINDINGS: Lung bases: Unremarkable. No mass. No consolidation. ABDOMEN: Liver: Unremarkable. No mass. Gallbladder and bile ducts: Unremarkable. No calcified stones. No ductal dilation. Pancreas: Unremarkable. No mass. No ductal dilation. Spleen: Unremarkable. No splenomegaly. Adrenals: Unremarkable. No mass. Kidneys and ureters: Subcentimeter hypodensities in the kidneys are too small to characterize. No hydronephrosis. Stomach and bowel: There appears to be pneumatosis coli in the cecum and ascending colon. Fluid-filled small bowel and proximal colon. PELVIS: Appendix: No findings to suggest acute appendicitis. Bladder: Unremarkable. No mass. Reproductive: Unremarkable as visualized. ABDOMEN and PELVIS: Intraperitoneal space: No free air. No significant fluid collection. Bones/joints: Degenerative change in the sacroiliac joints, right greater than left. No acute fracture. No dislocation. Soft tissues: Unremarkable. Vasculature: Unremarkable. No abdominal aortic aneurysm. Lymph nodes: Unremarkable. No enlarged lymph nodes. IMPRESSION: There appears to be pneumatosis coli in the cecum and ascending colon. No definite etiology is identified on this examination. However, infection/inflammation may be a potential source of given fluid throughout the small bowel and proximal colon. No definite mesenteric artery or vein occlusion is seen. Clinical correlation is recommended. Communications: Call Doctor Tiff 06/27/23 21:10 Call Doctor Regarding Above results, called JONNIE Velasco on 06/27 21:10 (-05:00) Electronically signed by: Dangelo Novoa MD 06/27/23 21:10 PM PG Care Time/CCT Total # of Minutes Spent Total Time Spent with Patient: Total time spent is greater than 50% in coordination of care (as documented) at patient's floor/unit and/or counseling patient: Coding Level of Care Code 02320 IN/OBS CONSULT LVL 3,45M Diagnoses Pneumatosis coli K63.89
[2023-06-28] MEDS: D5NSS + 20MEQ KCL 20 MEQ/1,000 ML BAG IV SCH (14:11)
--- NOTE | 2023-06-28 15:32 | Hospitalist Progress Note ---
Date of Service June 28, 2023 Assessment & Plan (1) Abdominal pain: Plan: Pneumatosis coli on imaging Past history diverticulitis Presenting as LGIB Patient currently hemodynamically stable. CT abdomen pelvis: Noted Hemoglobin stable General surgery and GI consulted Seems to be responding to IV antibiotics Continue IV Zosyn, IV fluids, n.p.o. for now except meds with sips of water hypertension, slightly elevated secondary discomfort Improving Continue to monitor GI consult re: LGIB, past history diverticulitis DVT prophylaxis. SCDs RE LGIB Full code Admission and Anticipated Discharge Date Admission Date: June 27, 2023 Subjective Follow-up for pneumatosis intestinalis, etc. Seen resting in bed, sleeping but easily awakened [employer] officers at the bedside States he feels improved today compared to yesterday Abdominal pain improving No nausea vomiting, fevers or chills Denies melena hematochezia while admitted no chest pain, dyspnea, palpitations, dizziness No other new symptoms Review of Systems Review of Systems: all noted and negative except for above Physical Exam Physical Exam: General- oriented x 3, not in distress, speaks in sentences with no effort or accessory muscle use Eyes- anicteric Neck- no JVD Lungs- clear breath sounds bilaterally, no crackles or wheezing Heart- normal rate, regular rhythm; no murmurs Abdomen- normal bowel sounds, nondistended, soft, mild tenderness left quadrants and right lower quadrant Extremities- no pretibial edema, no calf tenderness Neuro- alert, oriented x 3; no gross focal neurologic deficits Skin- warm & dry Results & Data Results & Data Vital Signs (Past 12 Hours) Vital Signs Temp Pulse Resp BP BP Pulse Ox O2 Del Method 06/28/23 13:42 36.6 C 62 16 121/61 96 Room Air 06/28/23 08:21 62 137/78 06/28/23 07:12 36.6 C 69 16 101/62 95 Room Air all noted and reviewed including below
[2023-06-28 15:50] LABS: Adenovirus F 40/41 PCR Not Detected (NotDetected); Astrovirus PCR Not Detected (NotDetected); Campylobacter PCR Not Detected (NotDetected); Cryptosporidium PCR Not Detected (NotDetected); Cyclospora cayetanensis PCR Not Detected (NotDetected); Entamoeba histolytica PCR Not Detected (NotDetected); Enteroaggregative E.coli(EAEC) Not Detected (NotDetected); Enteropathogenic E.coli (EPEC) Not Detected (NotDetected); Enterotoxigenic E.coli (ETEC) Not Detected (NotDetected); Giardia lamblia PCR Not Detected (NotDetected); Norovirus GI/GII PCR Not Detected (NotDetected); Plesiomonas shigelloides PCR Not Detected (NotDetected); Rotavirus A PCR Not Detected (NotDetected); Salmonella PCR Not Detected (NotDetected); Sapovirus PCR Not Detected (NotDetected); Shiga-like Toxin E.coli (STEC) Not Detected (NotDetected); Shigella/Enteroinvasive E.coli Not Detected (NotDetected); Vibrio cholerae PCR Not Detected (NotDetected); Vibrio species PCR Not Detected (NotDetected); Yersinia enterocolitica PCR Not Detected (NotDetected)
[2023-06-29] MEDS: KETOROLAC TROMETHAMINE 15 MG/ML VIAL IV ONE (00:12)
[2023-06-29 09:23] LABS: Basophils # (auto) 0.03 K/uL (0.00-0.20); Basophils % (auto) 0.5 %; Eosinophils # (auto) 0.23 K/uL (0.00-0.50); Eosinophils % (auto) 3.6 %; Hematocrit (blood only) 46.2 % (42.0-52.0); Hemoglobin 15.5 g/dl (14.0-18.0); Immature Granulocytes # (auto) 0.02 K/uL (0.01-0.20); Immature Granulocytes % (auto) 0.3 %; Lymphocytes # (auto) 2.57 K/uL (1.20-3.40); Lymphocytes % (auto) 40.4 %; Mean Corpuscular Hemoglobin 29.5 pg (25.0-34.0); Mean Corpuscular Hgb Conc 33.5 g/dL (32.0-36.0); Mean Platelet Volume 9.3 fL (9.4-12.4); Monocytes # (auto) 0.67 K/uL (0.11-0.59); Monocytes % (auto) 10.5 %; Neutrophils # (auto) 2.84 K/uL (1.40-6.50); Neutrophils % (auto) 44.7 %; Platelet Count 224 K/uL (130-400); RDW Coefficient of Variation 13.9 % (11.5-14.5); Red Blood Count 5.25 M/uL (4.70-6.10); White Blood Count 6.36 K/ul (4.8-10.8)
[2023-06-29 09:30] LABS: BUN Creatinine Ratio 5.3 (10-20); Calcium 8.5 mg/dl (8.6-10.3); Creatinine Clr Calc Pharmacy 90.7 ml/min; Est GFR (African American) 79.3 ml/min; Est GFR (Non-African American) 68.4 ml/min; Potassium 4.1 mmol/L (3.5-5.1)
--- NOTE | 2023-06-29 10:30 | Gastroenterology Progress Note ---
Date of Service June 29, 2023 Assessment & Plan (1) Pneumatosis coli: Plan: He is improving as expected. I suspect this was all an acute infectious process. The blood was a result of that and this is not a "lower GI bleed". Should be able to advance diet. Probably discharge in next day or so Admission and Anticipated Discharge Date Admission Date: June 27, 2023 Subjective patient feels "50%" better. Has not had a bowel movement since yesterday. Has not passed any blood and only passed that small amount of blood one time Physical Exam Physical Exam: He looks well Constitutional: WD/WN, vitals as above Results & Data Vital Signs (Past 12 Hours) Vital Signs Temp Pulse Resp BP Pulse Ox O2 Del Method 06/29/23 07:15 36.8 C 55 L 16 124/82 94 Room Air
--- NOTE | 2023-06-29 11:24 | Surgery Progress Note ---
Date of Service June 29, 2023 Assessment & Plan (1) Pneumatosis coli: Plan: still with abdominal discomfort less than yesterday Will start clear liquids , instructed to go slow, back off if N/V VSS WBC WNL Will monitor Seen with Dr. Silva As above. Slowly improving as expected. Continue antibiotics. Will initiate diet Admission and Anticipated Discharge Date Admission Date: June 27, 2023 Subjective still with abdominal discomfort less than yesterday Review of Systems Constitutional: no fever and no chills Respiratory: no dyspnea Gastrointestinal: + abdominal pain (less than yesterday ); no nausea and no vomiting Physical Exam Physical Exam: alert oriented Gastrointestinal (Abdomen): Inspection/Auscultation: + abdomen distended Percussion/Palpation: + abdomen tender and abdomen soft Musculoskeletal: no cyanosis or clubbing, extremities motor strength 5/5 Results & Data Vital Signs (Past 12 Hours) Vital Signs Temp Pulse Resp BP Pulse Ox O2 Del Method 06/29/23 07:15 98.2 F 55 L 16 124/82 94 Room Air PG Care Time/CCT Total # of Minutes Spent Total Time Spent with Patient: Total time spent is greater than 50% in coordination of care (as documented) at patient's floor/unit and/or counseling patient: Coding Level of Care Code 16829 SUB INP/OBS CARE 06/12MIN Diagnoses Pneumatosis coli K63.89
--- NOTE | 2023-06-29 14:40 | Hospitalist Progress Note ---
Date of Service June 29, 2023 Assessment & Plan (1) Abdominal pain: Plan: Pneumatosis coli on imaging Past history diverticulitis Presenting as LGIB Patient currently hemodynamically stable. CT abdomen pelvis: Noted Hemoglobin stable General surgery and GI consulted Seems to be responding to IV antibiotics Continue IV Zosyn, IV fluids, n.p.o. for now except meds with sips of water 06/29 Hemodynamically stable, afebrile Hemoglobin stable GI symptoms improving Continue with IV Zosyn Clear liquid diet for today IV fluids General surgery on board, appreciate the recommendations hypertension Improving Continue to monitor GI consult re: LGIB, past history diverticulitis DVT prophylaxis. SCDs RE LGIB Full code Admission and Anticipated Discharge Date Admission Date: June 27, 2023 Subjective Follow-up for pneumatosis intestinalis, etc. Seen sitting up in bed, watching TV, comfortable, not in distress States he feels improved today Less abdominal pain Tolerating clear liquids so far No nausea vomiting No melena hematochezia, had 1 liquid BM so far today No fevers or chills No other new symptoms Review of Systems Review of Systems: all noted and negative except for above Physical Exam Physical Exam: General- oriented x 3, not in distress, speaks in sentences with no effort or accessory muscle use Eyes- anicteric Neck- no JVD Lungs- clear breath sounds bilaterally, no rales/wheezes Heart- normal rate, regular rhythm; no murmurs Abdomen- normal bowel sounds, nondistended, soft, mild tenderness left upper and lower quadrant Extremities- no pretibial edema, no calf tenderness Neuro- alert, oriented x 3; no gross focal neurologic deficits Skin- warm & dry Results & Data Results & Data Vital Signs (Past 12 Hours) Vital Signs Temp Pulse Resp BP Pulse Ox O2 Del Method 06/29/23 14:18 36.7 C 61 18 127/86 96 Room Air 06/29/23 07:15 36.8 C 55 L 16 124/82 94 Room Air all noted and reviewed including below
[2023-06-30] MEDS: OPTIRAY 320 500ml IV ONE (10:02)
[2023-06-30 10:32] LABS: Adenovirus F 40/41 PCR Not Detected (NotDetected); Astrovirus PCR Not Detected (NotDetected); Campylobacter PCR Not Detected (NotDetected); Cryptosporidium PCR Not Detected (NotDetected); Cyclospora cayetanensis PCR Not Detected (NotDetected); Entamoeba histolytica PCR Not Detected (NotDetected); Enteroaggregative E.coli(EAEC) Not Detected (NotDetected); Enteropathogenic E.coli (EPEC) Not Detected (NotDetected); Enterotoxigenic E.coli (ETEC) Not Detected (NotDetected); Giardia lamblia PCR Not Detected (NotDetected); Norovirus GI/GII PCR Not Detected (NotDetected); Plesiomonas shigelloides PCR Not Detected (NotDetected); Rotavirus A PCR Not Detected (NotDetected); Salmonella PCR Not Detected (NotDetected); Shiga-like Toxin E.coli (STEC) Not Detected (NotDetected); Shigella/Enteroinvasive E.coli Not Detected (NotDetected); Vibrio cholerae PCR Not Detected (NotDetected); Vibrio species PCR Not Detected (NotDetected); Yersinia enterocolitica PCR Not Detected (NotDetected)
[2023-06-30 10:38] LABS: Sapovirus PCR DETECTED (NotDetected)
--- NOTE | 2023-06-30 10:54 | Surgery Progress Note ---
Date of Service June 30, 2023 Assessment & Plan (1) Abdominal pain: Plan: seems to be slowly improving. will repeat ct scan to see how things look...if improving will advance diet. no current indication for surgical intervention (2) Pneumatosis coli: (3) Colitis: Admission and Anticipated Discharge Date Admission Date: June 27, 2023 Subjective Nilson is doing ok. believes he is improving. had some blood with bm last night. tiffany liquids. he is quite hungry. Physical Exam Constitutional: WD/WN, vitals as above no acute distress and not ill appearing Eyes: PERRL, conjunctivae normal, anicteric sclerae EOM intact bilaterally ENMT: external ear and nose normal, oropharynx normal Ears: no hearing impairment Neck: trachea midline, no thyromegaly Respiratory: normal respiratory effort; no respiratory distress and does not use accessory muscles Cardiovascular: Rate/Rhythm: regular rate and regular rhythm Gastrointestinal (Abdomen): soft. very mild suprapubic ttp. no g/r/r. Skin: no rashes, warm and dry Psychiatric: Orientation: alert, oriented x 3 and cooperative Results & Data Vital Signs (Past 12 Hours) Vital Signs Temp Pulse Resp BP Pulse Ox O2 Del Method 06/30/23 06:46 36.4 C L 56 L 18 118/77 95 Room Air PG Care Time/CCT Total # of Minutes Spent Total Time Spent with Patient: Total time spent is greater than 50% in coordination of care (as documented) at patient's floor/unit and/or counseling patient: Coding Level of Care Code 70412 SUB INP/OBS CARE 2/35MIN Diagnoses Abdominal pain R10.9 Pneumatosis coli K63.89 Colitis K52.9
--- NOTE | 2023-06-30 12:07 | Gastroenterology Progress Note ---
Date of Service June 30, 2023 Assessment & Plan (1) Colitis: Plan: Seems to be improving. Had CT today, if report shows improvement agree with advance diet. Will see what happens with diarrhea as he gets on solid food Admission and Anticipated Discharge Date Admission Date: June 27, 2023 Subjective Having diarrhea now but overall feels better. Wants to eat Physical Exam Physical Exam: Pleasant and looks well Constitutional: WD/WN, vitals as above Results & Data Vital Signs (Past 12 Hours) Vital Signs Temp Pulse Resp BP Pulse Ox O2 Del Method 06/30/23 06:46 36.4 C L 56 L 18 118/77 95 Room Air
--- NOTE | 2023-06-30 14:04 | CT Scan Report ---
CT abd pelvis IV con only CLINICAL HISTORY: check status of colitis TECHNIQUE: Helical axial images of the abdomen and pelvis were obtained and displayed. Automated dose lowering techniques and/or adjustment according to patient size were utilized for this exam. This e xam was performed with intravenous contrast. CT DOSE: 1368. mGy.cm COMPARISON: Comparison is made to CT abdomen pelvis 06/27/2023 FINDINGS: Lower chest: No acute abnormality. Liver: Unremarkable. No focal lesions are seen. Gallbladder and biliary tree: No calcified gallstones. Normal caliber wall. No intra- or extrahepatic biliary ductal dilation. Pancreas: Unremarkable, no focal lesions. Spleen: Unremarkable. Adrenals: Unremarkable. Kidneys and ureters: Subcentimeter hypodensities are too small to characterize. Bladder: Unremarkable. Reproductive organs: Unremarkable. Bowel: The appendix is normal. No colonic wall thickening is seen. Previously noted peripheral gas in the cecum is no longer seen. Lymph nodes Retroperitoneal: Unremarkable. Pelvic: Unremarkable. Mesenteric: Subcentimeter lymph nodes are noted. Peritoneum: Normal. Vessels: Unremarkable. Abdominal wall: Unremarkable. Bones: Unremarkable. IMPRESSION: No acute abnormalities and in particular the colon is normal. ACT 112: Negative or not required by law. Electronically signed by: Jude Eddy M.D. 06/30/2023 2:03 PM
--- NOTE | 2023-06-30 18:01 | Hospitalist Progress Note ---
Date of Service June 30, 2023 Assessment & Plan (1) Abdominal pain: Plan: Pneumatosis coli on imaging Past history diverticulitis Presenting as LGIB Patient currently hemodynamically stable. CT abdomen pelvis: Noted Hemoglobin stable General surgery and GI consulted Seems to be responding to IV antibiotics Continue IV Zosyn, IV fluids, n.p.o. for now except meds with sips of water 06/29 Hemodynamically stable, afebrile Hemoglobin stable GI symptoms improving Continue with IV Zosyn Clear liquid diet for today IV fluids General surgery on board, appreciate the recommendations 06/30 Stool PCR: Positive norovirus Clinically improving CT abdomen: Resolution of pneumatosis intestinalis shown Continue IV Zosyn Diet advanced to full liquids Appreciate general surgery service recommendations Monitor closely hypertension Improving Continue to monitor GI consult re: LGIB, past history diverticulitis DVT prophylaxis. SCDs RE LGIB Full code Admission and Anticipated Discharge Date Admission Date: June 27, 2023 Subjective Follow-up for pneumatosis intestinalis, etc. Seen resting in bed, comfortable, not in distress States he feels better overall Abdominal pain continues to improve Having diarrhea today No fevers or chills No other new symptoms Review of Systems Review of Systems: all noted and negative except for above Physical Exam Physical Exam: General- oriented x 3, not in distress, speaks in sentences with no effort or accessory muscle use Eyes- anicteric Neck- no JVD Lungs- clear breath sounds bilaterally, no crackles or wheezing Heart- normal rate, regular rhythm; no murmurs Abdomen- normal bowel sounds, nondistended, soft, mild left quadrant tenderness Extremities- no pretibial edema, no calf tenderness Neuro- alert, oriented x 3; no gross focal neurologic deficits Skin- warm & dry Results & Data Results & Data Vital Signs (Past 12 Hours) Vital Signs Temp Pulse Resp BP Pulse Ox O2 Del Method 06/30/23 14:47 36.8 C 60 16 132/84 96 Room Air 06/30/23 06:46 36.4 C L 56 L 18 118/77 95 Room Air all noted and reviewed including below
[2023-06-30] MEDS: LOPERAMIDE HCL 2 MG CAP PO PRN (18:10)
--- NOTE | 2023-07-01 12:23 | Gastroenterology Progress Note ---
Date of Service July 01, 2023 Assessment & Plan (1) Colitis: Plan: doing well. Still with some loose stools. Will advance diet and see how he does Admission and Anticipated Discharge Date Admission Date: June 27, 2023 Subjective Continues to improve. Still with loose stools but not as frequent. No pain, no blood Physical Exam Physical Exam: He looks well Constitutional: WD/WN, vitals as above Results & Data Vital Signs (Past 12 Hours) Vital Signs Temp Pulse Resp BP Pulse Ox O2 Del Method 07/01/23 07:10 36.8 C 54 L 17 121/83 96 Room Air
--- NOTE | 2023-07-01 13:04 | Surgery Progress Note ---
Date of Service July 01, 2023 Assessment & Plan (1) Colitis: Plan: moving bowels , +flatus No N/V Abd pain 4/10 tolerating fulls , advance to reg VSS WBC 06/30/23 WNL Admission and Anticipated Discharge Date Admission Date: June 27, 2023 Subjective moving bowels , +flatus No N/V Abd pain 4/10 tolerating fulls Review of Systems Constitutional: no fever and no chills Respiratory: no dyspnea Cardiovascular: no chest pain Gastrointestinal: + abdominal pain; no nausea and no vomit ing Musculoskeletal: no muscle weakness Physical Exam Physical Exam: alert oriented Constitutional: well developed, cooperative and comfortable; no acute distress Respiratory: normal respiratory effort and able to speak in complete sentences; no respiratory distress Cardiovascular: Rate/Rhythm: + bradycardic (54) Gastrointestinal (Abdomen): Percussion/Palpation: + abdomen tender and abdomen soft; no guarding Musculoskeletal: no cyanosis or clubbing, extremities motor strength 5/5 Results & Data Vital Signs (Past 12 Hours) Vital Signs Temp Pulse Resp BP Pulse Ox O2 Del Method 07/01/23 07:10 98.2 F 54 L 17 121/83 96 Room Air PG Care Time/CCT Total # of Minutes Spent Total Time Spent with Patient: Total time spent is greater than 50% in coordination of care (as documented) at patient's floor/unit and/or counseling patient: Coding Level of Care Code 51544 SUB INP/OBS CARE 25MIN Diagnoses Colitis K52.9
--- NOTE | 2023-07-01 13:40 | Hospitalist Progress Note ---
Date of Service July 01, 2023 Assessment & Plan (1) Abdominal pain: Plan: PNEUMATOSIS COLI NOROVIRUS INFECTION Presenting as LGIB, hemodynamically stable Hemoglobin stable CT abdomen pelvis: There appears to be pneumatosis coli in the cecum and ascending colon. No definite etiology is identified on this examination. However, infection/inflammation may be a potential source of given fluid throughout the small bowel and proximal colon. No definite mesenteric artery or vein occlusion is seen. Clinical correlation is recommended. General surgery and GI consulted Given IV antibiotics, IV fluids, bowel rest Clinically improving Repeat CT: Showing resolution of pneumatosis intestinalis Diet slowly advanced, soft diet started today Continue IV Zosyn day #5 HYPERTENSION Resolved since admission DVT prophylaxis. SCDs RE LGIB Full code Admission and Anticipated Discharge Date Admission Date: June 27, 2023 Subjective Follow-up for pneumatosis intestinalis, etc. Resting in bed, comfortable, not in distress [employer] at the bedside throughout encounter States he continues to feel improved Abdominal pain improving Diarrhea also resolving No nausea vomiting, fevers or chills No other new symptoms Review of Systems Review of Systems: all noted and negative except for above Physical Exam Physical Exam: General- oriented x 3, not in distress, speaks in sentences with no effort or accessory muscle use Eyes- anicteric Neck- no JVD Lungs- clear breath sounds, no crackles or wheezing bilaterally Heart- normal rate, regular rhythm; no murmurs Abdomen- normal bowel sounds, nondistended, soft, mild lower quadrant tenderness Extremities- no pretibial edema, no calf tenderness Neuro- alert, oriented x 3; no gross focal neurologic deficits Skin- warm & dry Results & Data Results & Data Vital Signs (Past 12 Hours) Vital Signs Temp Pulse Resp BP Pulse Ox O2 Del Method 07/01/23 07:10 36.8 C 54 L 17 121/83 96 Room Air all noted and reviewed including below
--- NOTE | 2023-07-01 16:44 | Discharge Summary ---
Discharge Summary Date of Service July 01, 2023 Notes For Next Care Provider Medication Changes From Visit Augmentin 875 mg twice daily Admission HPI Per Admitting Provider History obtained from patient and records. Medical history significant for hypertension, migraine, past episodes of diverticulitis, osteoarthritis. Last [facility] ER visit June 2021 for mild diverticulitis. Patient symptoms improved with home Rx of Augmentin at facility. Few days ago, patient noted achy lower abdominal pain reminiscent of diverticulitis pain from 2 years ago. Worsening pain noted today much worse than 2 years ago. Some nausea, no emesis. Constipated. No unusual weight loss. No fever, no chills, no chest pain, no SOB. Transient achy headache symptoms associated with seeing bright spots. Bloody diarrhea noted at the ER. Medical History as above Surgical History : None Family History : Heart disease, DM, stroke Personal/Social history : Non-smoker, no EtOH intake, residential inmate Admission Exam Per Admitting Provider GENERAL: uncomfortable, obese, anxious, no respiratory distress SKIN: Normal color, warm HEENT: [place] palpebral conjunctivae, no ptosis, dry buccal mucosa NECK : Supple, no tenderness CHEST : CTA, no tenderness HEART : RRR, no obvious murmurs ABDOMEN: Abdominal distention, left-sided abdominal tenderness EXTREMITIES : No LE swelling/tenderness, no other conspicuous deformities noted NEUROLOGIC : Coherent, no facial asymmetry, no other gross focality Principal Dx & Hospital Course #1 = Principal Diagnosis (1) Abdominal pain: PNEUMATOSIS COLI NOROVIRUS INFECTION Presenting as LGIB, hemodynamically stable Hemoglobin stable CT abdomen pelvis: There appears to be pneumatosis coli in the cecum and ascending colon. No definite etiology is identified on this examination. However, infection/inflammation may be a potential source of given fluid throughout the small bowel and proximal colon. No definite mesenteric artery or vein occlusion is seen. Clinical correlation is recommended. Stool PCR panel: Positive for norovirus General surgery and GI consulted Given IV antibiotics, IV fluids, bowel rest Clinically improving Diarrhea resolving Repeat CT: Showing resolution of pneumatosis intestinalis Diet slowly advanced, soft diet started today Continue IV Zosyn day #4.5 Discharged on Augmentin 875 twice daily x 6 more days to complete 10-day course Encourage to take probiotics and eat yogurt daily Drink plenty of fluids HYPERTENSION Resolved since admission DVT prophylaxis. SCDs RE LGIB Full code Discharge Exam General- oriented x 3, not in distress, speaks in sentences with no effort or accessory muscle use Eyes- anicteric Neck- no JVD Lungs- clear breath sounds, no crackles or wheezing bilaterally Heart- normal rate, regular rhythm; no murmurs Abdomen- normal bowel sounds, nondistended, soft, mild lower quadrant tenderness Extremities- no pretibial edema, no calf tenderness Neuro- alert, oriented x 3; no gross focal neurologic deficits Skin- warm & dry Updated Medication List Medication Instructions Recorded Confirmed Type celecoxib 200 mg capsule (Celebrex) 200 mg PO BID 06/27/23 06/27/23 History losartan 100 mg tablet 100 mg PO DAILY 06/27/23 06/27/23 History amoxicillin 875 mg-potassium 1 tab PO BID 6 days #12 tabs 07/01/23 Rx clavulanate 125 mg tablet Hospital Stay Data Consultations 06/27/23 22:49 ED Decision to Admit Stat 06/28/23 01:03 Consult General Surgery Routine 06/28/23 05:55 Consult Gastroenterology Routine Diagnostic Imagining Performed Laboratory Results WBC 6.36 K/ul (4.8-10.8) 06/29/23 08:32 RBC 5.25 M/uL (4.70-6.10) 06/29/23 08:32 Hgb 15.5 g/dl (14.0-18.0) 06/29/23 08:32 Hct 46.2 % (42.0-52.0) 06/29/23 08:32 MCV 88.0 fL (80.0-100.0) 06/29/23 08:32 MCH 29.5 pg (25.0-34.0) 06/29/23 08:32 MCHC 33.5 g/dL (32.0-36.0) 06/29/23 08:32 RDW Std Deviation 45.0 fL (36.4-46.3) 06/29/23 08:32 RDW Coeff of Marcella 13.9 % (11.5-14.5) 06/29/23 08:32 Plt Count 224 K/uL (130-400) 06/29/23 08:32 MPV 9.3 fL (9.4-12.4) L 06/29/23 08:32 Immature Gran % (Auto) 0.3 % 06/29/23 08:32 Neut % (Auto) 44.7 % 06/29/23 08:32 Lymph % (Auto) 40.4 % 06/29/23 08:32 [place] % (Auto) 10.5 % 06/29/23 08:32 Eos % (Auto) 3.6 % 06/29/23 08:32 Baso % (Auto) 0.5 % 06/29/23 08:32 Neut # (Auto) 2.84 K/uL (1.40-6.50) 06/29/23 08:32 Lymph # (Auto) 2.57 K/uL (1.20-3.40) 06/29/23 08:32 [place] # (Auto) 0.67 K/uL (0.11-0.59) H 06/29/23 08:32 Eos # (Auto) 0.23 K/uL (0.00-0.50) 06/29/23 08:32 Baso # (Auto) 0.03 K/uL (0.00-0.20) 06/29/23 08:32 Immature Gran # (Auto) 0.02 K/uL (0.01-0.20) 06/29/23 08:32 Sodium 141 mmol/L (136-145) 06/29/23 08:32 Potassium 4.1 mmol/L (3.5-5.1) 06/29/23 08:32 Chloride 107 mmol/L (98-107) 06/29/23 08:32 Carbon Dioxide 31 mmol/L (21-32) 06/29/23 08:32 Anion Gap 3 (3-11) 06/29/23 08:32 BUN 7 mg/dl (6-23) 06/29/23 08:32 Creatinine 1.32 mg/dl (0.6-1.4) 06/29/23 08:32 Est Cr Clr Drug Dosing 90.7 ml/min 06/29/23 08:32 Est GFR ( Amer) 79.3 ml/min 06/29/23 08:32 Est GFR (Non-Af Amer) 68.4 ml/min 06/29/23 08:32 BUN/Creatinine Ratio 5.3 (10-20) L 06/29/23 08:32 Glucose 94 mg/dl (70-99(Fasting)) 06/29/23 08:32 Lactate 0.8 mmol/L (0.4-2.0) 06/27/23 19:18 Calcium 8.5 mg/dl (8.6-10.3) L 06/29/23 08:32 Total Bilirubin 0.6 mg/dl (0.2-1.0) 06/27/23 19:18 AST 17 U/L (13-39) 06/27/23 19:18 ALT 26 U/L (7-52) 06/27/23 19:18 Alkaline Phosphatase 103 U/L (34-104) 06/27/23 19:18 Total Protein 8.0 gm/dl (6.0-8.3) 06/27/23 19:18 Albumin 4.5 gm/dl (3.4-5.0) 06/27/23 19:18 Globulin 3.5 gm/dl (2.5-4.0) 06/27/23 19:18 Albumin/Globulin Ratio 1.3 (0.9-2) 06/27/23 19:18 Lipase 9 U/L (11-82) L 06/27/23 19:18 Urine Color Yellow 06/28/23 00:00 Urine Appearance Clear (Clear) 06/28/23 00:00 Urine pH 5.5 (4.5-7.5) 06/28/23 00:00 Ur Specific [place] > 1.045 (1.000-1.030) H 06/28/23 00:00 Urine Protein Trace (Negative) H 06/28/23 00:00 Urine Glucose (UA) Negative (Negative) 06/28/23 00:00 Urine Ketones Negative (Negative) 06/28/23 00:00 Urine Blood Negative (Negative) 06/28/23 00:00 Urine Nitrite Negative (Negative) 06/28/23 00:00 Urine Bilirubin Negative (Negative) 06/28/23 00:00 Urine Urobilinogen Negative (Negative) 06/28/23 00:00 Ur Leukocyte Esterase Negative (Negative) 06/28/23 00:00 Urine WBC (Auto) 1-5 /hpf (0-5) 06/28/23 00:00 Urine RBC (Auto) 0-4 /hpf (0-4) 06/28/23 00:00 U Hyaline Cast (Auto) 1-5 /lpf (0-5) 06/28/23 00:00 U Epithel Cells (Auto) 5-10 /lpf (0-5) H 06/28/23 00:00 Urine Bacteria (Auto) Negative (Negative) 06/28/23 00:00 Nasal Screen MRSA (PCR) Negative (Negative) 06/28/23 03:44 Stl C. cayetanensis PCR Not Detected (NotDetected) 02 08:59 Stool Rotavirus A PCR Not Detected (NotDetected) 06/30/23 08:59 Stl Adenov F 40/41 PCR Not Detected (NotDetected) 06/30/23 08:59 Stool Astrovirus (PCR) Not Detected (NotDetected) 06/30/23 08:59 Stool Campylobacter PCR Not Detected (NotDetected) 06/30/23 08:59 Stl C. diff Tox B Gene Negative Cdiff Gene (Neg) 06/30/23 08:59 Stool Cryptosporidium PCR Not Detected (NotDetected) 06/30/23 08:59 Stl E.coli Shiga Tox PCR Not Detected (NotDetected) 06/30/23 08:59 Stl Enterotoxigenic E PCR Not Detected (NotDetected) 06/30/23 08:59 Stool EPEC (PCR) Not Detected (NotDetected) 06/30/23 08:59 Stool EAEC (PCR) Not Detected (NotDetected) 06/30/23 08:59 Stl E. histolytica PCR Not Detected (NotDetected) 06/30/23 08:59 Stool Giardia Lamblia PCR Not Detected (NotDetected) 06/30/23 08:59 Stool Salmonella PCR Not Detected (NotDetected) 06/30/23 08:59 Stool Sapovirus (PCR) DETECTED (NotDetected) A* 06/30/23 08:59 Stl P. shigelloides PCR Not Detected (NotDetected) 06/30/23 08:59 Stl Shigella/EIEC PCR Not Detected (NotDetected) 06/30/23 08:59 St Y.enterocolitica PCR Not Detected (NotDetected) 06/30/23 08:59 Stool Vibrio (PCR) Not Detected (NotDetected) 06/30/23 08:59 Stl Vibrio cholerae PCR Not Detected (NotDetected) 06/30/23 08:59 Stl Norovirus GI/GII PCR Not Detected (NotDetected) 06/30/23 08:59 SARS-CoV-2, RNA, NAAT NEGATIVE (NEGATIVE) 06/28/23 01:11 Blood Type O Positive 06/28/23 01:19 Antibody Screen NEGATIVE 06/28/23 01:19 Impressions ADDENDUM ADDENDUM: 06/27/23 21:10 Call Doctor Regarding Pneumatosis, called JONNIE Velasco on Electronically signed by: Dangelo Novoa MD Electronically signed by: Dangelo Novoa MD 06/27/23 21:10 PM ADDENDUM END ADDENDUM ADDENDUM: 06/27/23 21:10 Call Doctor Regarding Above results, called JONNIE Velasco on Electronically signed by: Dangelo Novoa MD Electronically signed by: Dangelo Novoa MD 06/27/23 21:10 PM ADDENDUM END Exam(s): CT ABDOMEN + PELVIS With Contrast IV Amt: 88 ml opti 320 EXAM: CT Abdomen and Pelvis With Intravenous Contrast CLINICAL HISTORY: Reason for exam: llq pain, guarding, hx diverticulitis. TECHNIQUE: Axial computed tomography images of the abdomen and pelvis with intravenous contrast. CTDI is 27.92 mGy and DLP is 1459.91 mGy-cm. Automated exposure control was utilized for the study. A dose lowering technique was utilized adhering to the principles of ALARA. CONTRAST: Patient received 88 ml opti 320 of IV contrast COMPARISON: CT abdomen pelvis 07/11/2021. FINDINGS: Lung bases: Unremarkable. No mass. No consolidation. ABDOMEN: Liver: Unremarkable. No mass. Gallbladder and bile ducts: Unremarkable. No calcified stones. No ductal dilation. Pancreas: Unremarkable. No mass. No ductal dilation. Spleen: Unremarkable. No splenomegaly. Adrenals: Unremarkable. No mass. Kidneys and ureters: Subcentimeter hypodensities in the kidneys are too small to characterize. No hydronephrosis. Stomach and bowel: There appears to be pneumatosis coli in the cecum and ascending colon. Fluid-filled small bowel and proximal colon. PELVIS: Appendix: No findings to suggest acute appendicitis. Bladder: Unremarkable. No mass. Reproductive: Unremarkable as visualized. ABDOMEN and PELVIS: Intraperitoneal space: No free air. No significant fluid collection. Bones/joints: Degenerative change in the sacroiliac joints, right greater than left. No acute fracture. No dislocation. Soft tissues: Unremarkable. Vasculature: Unremarkable. No abdominal aortic aneurysm. Lymph nodes: Unremarkable. No enlarged lymph nodes. IMPRESSION: There appears to be pneumatosis coli in the cecum and ascending colon. No definite etiology is identified on this examination. However, infection/inflammation may be a potential source of given fluid throughout the small bowel and proximal colon. No definite mesenteric artery or vein occlusion is seen. Clinical correlation is recommended. Communications: Call Doctor Tiff 06/27/23 21:10 Call Doctor Regarding Above results, called JONNIE Velasco on 06/27 21:10 (-05:00) Electronically signed by: Dangelo Novoa MD 06/27/23 21:[address] 06/28/23 00:00 Exam(s): CT HEAD Without Contrast EXAM: CT Head Without Intravenous Contrast CLINICAL HISTORY: Reason for exam: transient goff, visual spots. TECHNIQUE: Axial computed tomography images of the head/brain without intravenous contrast. CTDI is 37.49 mGy and DLP is 547.75 mGy-cm. Automated exposure control was utilized for the study. A dose lowering technique was utilized adhering to the principles of ALARA. COMPARISON: No relevant prior studies available. FINDINGS: Brain: Unremarkable. No hemorrhage. No significant white matter disease. No edema. Ventricles: Unremarkable. No ventriculomegaly. Bones/joints: Unremarkable. No acute fracture. Soft tissues: Unremarkable. Sinuses: Unremarkable as visualized. No acute sinusitis. Mastoid air cells: Unremarkable as visualized. No mastoid effusion. Orbits: Prior right inferior orbital rim repair. IMPRESSION: No acute findings in the head/brain. Electronically signed by: Francisco Hurd M.D. 06/28/23 03:05 AM Abdomen/Pelvis CT 06/30/23 09:00 CT abd pelvis IV con only CLINICAL HISTORY: check status of colitis TECHNIQUE: Helical axial images of the abdomen and pelvis were obtained and di splayed. Automated dose lowering techniques and/or adjustment according to patient size were utilized for this exam. This exam was performed with intravenous contrast. CT DOSE: 1368. mGy.cm COMPARISON: Comparison is made to CT abdomen pelvis 06/27/2023 FINDINGS: Lower chest: No acute abnormality. Liver: Unremarkable. No focal lesions are seen. Gallbladder and biliary tree: No calcified gallstones. Normal caliber wall. No intra- or extrahepatic biliary ductal dilation. Pancreas: Unremarkable, no focal lesions. Spleen: Unremarkable. Adrenals: Unremarkable. Kidneys and ureters: Subcentimeter hypodensities are too small to characterize. Bladder: Unremarkable. Reproductive organs: Unremarkable. Bowel: The appendix is normal. No colonic wall thickening is seen. Previously noted peripheral gas in the cecum is no longer seen. Lymph nodes Retroperitoneal: Unremarkable. Pelvic: Unremarkable. Mesenteric: Subcentimeter lymph nodes are noted. Peritoneum: Normal. Vessels: Unremarkable. Abdominal wall: Unremarkable. Bones: Unremarkable. IMPRESSION: No acute abnormalities and in particular the colon is normal. ACT 112: Negative or not required by law. Electronically signed by: Jude Eddy M.D. 06/30/2023 2:03 PM Pending Results Patient Have Any Pending Studies at Discharge: No Discharge Instructions Given to Patient (Per Discharging Provider) PLEASE REFER TO ACCOMPANYING HOSPITAL DISCHARGE SUMMARY. Total Time Total Time Spent Total Time Spent (In Minutes): >30 minutes
== END 2023-07-01 18:12 | DRG 392 ==
LOC: ED 19:04 → 3E 23:49 → SUATTDRO 23:49 → INTOOBSV 23:49 → 3E 06-28 01:57